=== PATIENT | female | born 1935 | race Caucasian/White ===

== ENCOUNTER → 2017-11-02 07:53 | Outpatient (CLI) | payer MEDICARE, SELFPAY ==
[2017-11-02 07:59] LABS: Bacteria 0 SEEN /hpf (None Seen); Mucous, Urine 0 SEEN /hpf (<or=2+); Red Blood Cells-Urine 0 SEEN /hpf (0-5)
[2017-11-02 09:13] LABS: Hemoglobin A1c 8.1 % (4.2-6.3)
[2017-11-02 09:29] LABS: Anion Gap 7 (5-15); BUN 25 mg/dL (7-18); BUN/Creat Ratio 22.1 RATIO (10-20); Calcium,Total 9.4 mg/dL (8.5-10.1); Chloride 100 mmol/L (98-107); Cholesterol 283 mg/dL (200); Creatinine, Serum 1.13 mg/dL (0.55-1.02); EST Glomerular Filtration Rate 49 mL/min (>60); Est Glom Filt Rate - Afr Amer 60 mL/min (>60); Glucose 188 mg/dL (74-106); High Density Lipoprotein 43 mg/dL; Potassium 4.7 mmol/L (3.5-5.1); Sodium Level 138 mmol/L (136-145); T4 Free Direct 1.36 ng/dL (0.76-1.46); Thyroid Stim Hormone (TSH) 1.78 uIU/mL (0.358-3.74); Triglycerides 418 mg/dL
[2017-11-02 10:23] LABS: Color, Urine Yellow (Yellow); Glucose, Dipstick Normal (Normal); Ketone-Dipstick Negative (Negative); Leukocyte Esterase-Dipstick 25 /ul (Negative); Nitrite-Dipstick Negative (Negative); Occult Blood-Urine Negative /ul (Negative); Protein-Dipstick 15 mg/dl (Negative); Urine Bilirubin Dipstick Negative (Negative); Urine Clarity Clear (Clear); Urine Urobilinogen Normal (Normal); Urine pH 6.5 (5.0 - 8.0)
[2017-11-02 10:39] LABS: Squamous Epithelial Cells - UA 0-5 SEEN /hpf (5-10); Transitional Epithelial - Ur 0-5 SEEN /hpf (0-5); White Blood Cells 0-5 SEEN /hpf (0-5)
== END ==
PROVIDERS: Family Provider Internal Medicine; PCP Internal Medicine; Visit Provider Internal Medicine
DX: E78.2 Mixed hyperlipidemia (principal); E03.9 Hypothyroidism, unspecified; E11.9 Type 2 diabetes mellitus without complications; I10 Essential (primary) hypertension
CPT/HCPCS: 36415; 80048; 80061; 81001; 83036; 84439; 84443

== ENCOUNTER → 2018-02-01 09:48 | Outpatient (CLI) | payer MEDICARE, SELFPAY ==
[2018-02-01 10:31] LABS: Hematocrit 37.8 % (37-47); Hemoglobin 12.3 g/dl (12.0-15.0); Mean Corp Hgb Conc 32.5 g/gl (32-36); Mean Corpuscular Hgb 30.8 pg (27.0-32.0); Mean Corpuscular Volume 94.5 fL (81-99); Mean Platelet Vol. 10.9 fl (6.2-12.0); Platelet Count 347 K/mm3 (150-450); RBC Distribution Width CV 12.3 % (11.6-14.6); RBC Distribution Width SD 41.8 fl (35.1-43.9); Scan Indicated on CBC? Y/N NO; White Blood Count 6.8 K/mm3 (4.4-11.0)
[2018-02-01 10:50] LABS: Hemoglobin A1c 7.9 % (4.2-6.3)
[2018-02-01 11:04] LABS: Microalbumin,Random Urine 56.3 mg/L (NO RANGE EST.); Microalbumin:Creatinine Ratio 84.7 mg/g CRE (<30 mg/g CRE)
[2018-02-01 11:09] LABS: ALB/GLOB Ratio 0.9 RATIO (0.9-2.4); AST(SGOT) 17 U/L (15-37); Alanine Aminotransfer ALT/SGPT 21 U/L (13-56); Albumin, Serum 3.7 g/dL (3.2-5.0); Alkaline Phosphatase 75 U/L (45-117); Anion Gap 9 (5-15); BUN 31 mg/dL (7-18); BUN/Creat Ratio 29.5 RATIO (10-20); Calcium,Total 9.4 mg/dL (8.5-10.1); Chloride 103 mmol/L (98-107); Cholesterol 301 mg/dL (200); Creatinine, Serum 1.05 mg/dL (0.55-1.02); EST Glomerular Filtration Rate 54 mL/min (>60); Est Glom Filt Rate - Afr Amer 65 mL/min (>60); Globulin 4.2 g/dL (2.2-4.2); Glucose 176 mg/dL (74-106); High Density Lipoprotein 39 mg/dL; Potassium 4.3 mmol/L (3.5-5.1); Protein, Total 7.9 g/dL (6.4-8.2); Sodium Level 138 mmol/L (136-145); Triglycerides 379 mg/dL; Very Low Density Lipoprotein 76 mg/dL (5-40)
[2018-02-02 05:07] LABS: LDL, Direct 120295 192 mg/dL (0-99)
== END ==
PROVIDERS: Family Provider Internal Medicine; PCP Internal Medicine; Visit Provider Internal Medicine
DX: E11.9 Type 2 diabetes mellitus without complications (principal); E78.2 Mixed hyperlipidemia; I10 Essential (primary) hypertension; Z79.899 Other long term (current) drug therapy
CPT/HCPCS: 36415; 80053; 80061; 82043; 82570; 83036; 83721; 85027

== ENCOUNTER → 2018-06-07 08:05 | Outpatient (CLI) | payer MEDICARE, SELFPAY ==
[2018-06-07 08:13] LABS: Bacteria 0 SEEN /hpf (None Seen); Mucous, Urine 0 SEEN /hpf (<or=2+); Red Blood Cells-Urine 0 SEEN /hpf (0-5)
[2018-06-07 08:28] LABS: Color, Urine Yellow (Yellow); Glucose, Dipstick Normal (Normal); Ketone-Dipstick Negative (Negative); Leukocyte Esterase-Dipstick 100 /ul (Negative); Nitrite-Dipstick Negative (Negative); Occult Blood-Urine Negative /ul (Negative); Protein-Dipstick 15 mg/dl (Negative); Specific Gravity, Urine 1.005 (1.002-1.030); Urine Bilirubin Dipstick Negative (Negative); Urine Clarity Sl. Cloudy (Clear); Urine Urobilinogen Normal (Normal)
[2018-06-07 08:34] LABS: Squamous Epithelial Cells - UA 0-5 SEEN /hpf (5-10); White Blood Cells 10-25 SEEN /hpf (0-5)
[2018-06-07 09:06] LABS: BUN 28 mg/dL (7-18); Creatinine, Serum 1.35 mg/dL (0.55-1.02); Glucose 189 mg/dL (74-106)
[2018-06-07 09:07] LABS: Anion Gap 5 (5-15); BUN/Creat Ratio 20.7 RATIO (10-20); Calcium,Total 9.1 mg/dL (8.5-10.1); Chloride 103 mmol/L (98-107); Cholesterol 290 mg/dL (200); EST Glomerular Filtration Rate 40 mL/min (>60); Est Glom Filt Rate - Afr Amer 48 mL/min (>60); High Density Lipoprotein 42 mg/dL; Potassium 4.7 mmol/L (3.5-5.1); Sodium Level 137 mmol/L (136-145); T4 Free Direct 1.17 ng/dL (0.76-1.46); Thyroid Stim Hormone (TSH) 2.06 uIU/mL (0.358-3.74); Triglycerides 320 mg/dL; Very Low Density Lipoprotein 64 mg/dL (5-40)
[2018-06-08 04:08] LABS: LDL, Direct 120295 205 mg/dL (0-99)
== END ==
PROVIDERS: Family Provider Internal Medicine; PCP Internal Medicine; Visit Provider Internal Medicine
DX: E11.9 Type 2 diabetes mellitus without complications (principal); E78.2 Mixed hyperlipidemia; E03.9 Hypothyroidism, unspecified; I10 Essential (primary) hypertension
CPT/HCPCS: 36415; 80048; 80061; 81001; 83036; 83721; 84439; 84443

== ENCOUNTER → 2018-12-18 11:12 | Outpatient (CLI) | payer MEDICARE, SELFPAY ==
[2018-12-18 11:52] LABS: Anion Gap 6 (5-15); BUN 24 mg/dL (7-18); BUN/Creat Ratio 23.3 RATIO (10-20); Calcium,Total 8.9 mg/dL (8.5-10.1); Chloride 108 mmol/L (98-107); Cholesterol 279 mg/dL (200); Creatinine, Serum 1.03 mg/dL (0.55-1.02); EST Glomerular Filtration Rate 55 mL/min (>60); Est Glom Filt Rate - Afr Amer 66 mL/min (>60); Glucose 169 mg/dL (74-106); High Density Lipoprotein 45 mg/dL; Potassium 4.2 mmol/L (3.5-5.1); Sodium Level 138 mmol/L (136-145); Triglycerides 253 mg/dL; Very Low Density Lipoprotein 51 mg/dL (5-40)
[2018-12-18 11:57] LABS: Hemoglobin A1c 8.3 % (4.2-6.3)
== END ==
PROVIDERS: Family Provider Internal Medicine; PCP Internal Medicine; Referring Provider Internal Medicine; Visit Provider Internal Medicine
DX: E11.9 Type 2 diabetes mellitus without complications (principal); E78.2 Mixed hyperlipidemia; I10 Essential (primary) hypertension
CPT/HCPCS: 80048; 80061; 83036

== ENCOUNTER → 2019-02-25 | Outpatient (CLI) | payer MEDICARE, SELFPAY ==
[2017-06-29 15:59] VITALS: BMI 30.4
== END | disposition home or self-care (01) ==
PROVIDERS: Family Provider Internal Medicine; PCP Internal Medicine; Referring Provider Internal Medicine; Visit Provider Internal Medicine
DX: R30.0 Dysuria (principal)
CPT/HCPCS: 87086; 87088

== ENCOUNTER → 2019-03-18 | Outpatient (CLI) | payer MEDICARE, SELFPAY ==
[2017-06-29 15:59] VITALS: BMI 30.4
[2019-03-18 11:50] LABS: Anion Gap 2 (5-15); BUN 22 mg/dL (7-18); BUN/Creat Ratio 18.8 RATIO (10-20); Calcium,Total 9.2 mg/dL (8.5-10.1); Chloride 105 mmol/L (98-107); Cholesterol 273 mg/dL (200); Creatinine, Serum 1.17 mg/dL (0.55-1.02); EST Glomerular Filtration Rate 47 mL/min (>60); Est Glom Filt Rate - Afr Amer 57 mL/min (>60); Glucose 191 mg/dL (74-106); Hemoglobin A1c 8.6 % (4.2-6.3); High Density Lipoprotein 44 mg/dL; Potassium 4.1 mmol/L (3.5-5.1); Sodium Level 136 mmol/L (136-145); Triglycerides 235 mg/dL; Very Low Density Lipoprotein 47 mg/dL (5-40)
== END | disposition home or self-care (01) ==
LOC: LABSPEC 10:50
PROVIDERS: Family Provider Internal Medicine; PCP Internal Medicine; Referring Provider Internal Medicine; Visit Provider Internal Medicine
DX: E78.2 Mixed hyperlipidemia (principal); E11.9 Type 2 diabetes mellitus without complications; I10 Essential (primary) hypertension
CPT/HCPCS: 80048; 80061; 83036

== ENCOUNTER → 2019-06-24 | Outpatient (CLI) | payer MEDICARE, SELFPAY ==
[2017-06-29 15:59] VITALS: BMI 30.4
[2019-06-24 11:06] LABS: Hematocrit 37.6 % (37-47); Mean Corp Hgb Conc 31.9 g/dL (32-36); Mean Corpuscular Hgb 29.9 pg (27.0-32.0); Mean Corpuscular Volume 93.8 fL (81-99); Mean Platelet Vol. 10.6 fl (6.2-12.0); Platelet Count 367 K/mm3 (150-450); RBC Distribution Width CV 12.6 % (11.6-14.6); RBC Distribution Width SD 43.4 fl (35.1-43.9); Red Blood Count 4.01 M/mm3 (4.2-5.4); White Blood Count 8.4 K/mm3 (4.4-11.0)
[2019-06-24 11:19] LABS: ALB/GLOB Ratio 0.8 RATIO (0.9-2.4); AST(SGOT) 13 U/L (15-37); Alanine Aminotransfer ALT/SGPT 19 U/L (13-56); Albumin, Serum 3.6 g/dL (3.2-5.0); Alkaline Phosphatase 76 U/L (45-117); Anion Gap 7 (5-15); BUN 28 mg/dL (7-18); BUN/Creat Ratio 23.5 RATIO (10-20); Calcium,Total 9.5 mg/dL (8.5-10.1); Chloride 104 mmol/L (98-107); Cholesterol 267 mg/dL (200); Creatinine, Serum 1.19 mg/dL (0.55-1.02); EST Glomerular Filtration Rate 46 mL/min (>60); Est Glom Filt Rate - Afr Amer 56 mL/min (>60); Globulin 4.5 g/dL (2.2-4.2); Glucose 176 mg/dL (74-106); High Density Lipoprotein 44 mg/dL; Potassium 4.4 mmol/L (3.5-5.1); Protein, Total 8.1 g/dL (6.4-8.2); Sodium Level 139 mmol/L (136-145); Triglycerides 298 mg/dL; Very Low Density Lipoprotein 60 mg/dL (5-40)
[2019-06-24 11:24] LABS: Hemoglobin A1c 7.9 % (4.2-6.3)
== END | disposition home or self-care (01) ==
PROVIDERS: Family Provider Internal Medicine; PCP Internal Medicine; Referring Provider Internal Medicine; Visit Provider Internal Medicine
DX: E11.9 Type 2 diabetes mellitus without complications (principal); E78.2 Mixed hyperlipidemia; I10 Essential (primary) hypertension
CPT/HCPCS: 80053; 80061; 83036; 85027

== ENCOUNTER → 2019-09-20 12:14 | Outpatient (CLI) | payer MEDICARE, SELFPAY ==
[2017-06-29 15:59] VITALS: BMI 30.4
[2019-09-20 15:13] LABS: Hematocrit 38.4 % (37-47); Hemoglobin 12.2 g/dL (12.0-15.0); Mean Corp Hgb Conc 31.8 g/dL (32-36); Mean Corpuscular Hgb 30.3 pg (27.0-32.0); Mean Corpuscular Volume 95.5 fL (81-99); Mean Platelet Vol. 11.4 fl (6.2-12.0); Platelet Count 373 K/mm3 (150-450); RBC Distribution Width CV 12.4 % (11.6-14.6); RBC Distribution Width SD 43.2 fl (35.1-43.9); Red Blood Count 4.02 M/mm3 (4.2-5.4); White Blood Count 10.5 K/mm3 (4.4-11.0)
[2019-09-20 15:33] LABS: ALB/GLOB Ratio 0.9 RATIO (0.9-2.4); AST(SGOT) 16 U/L (15-37); Alanine Aminotransfer ALT/SGPT 26 U/L (13-56); Albumin, Serum 3.8 g/dL (3.2-5.0); Alkaline Phosphatase 82 U/L (45-117); Anion Gap 5 (5-15); BUN 24 mg/dL (7-18); BUN/Creat Ratio 19.2 RATIO (10-20); Calcium,Total 9.6 mg/dL (8.5-10.1); Chloride 104 mmol/L (98-107); Cholesterol 214 mg/dL (200); Creatinine, Serum 1.25 mg/dL (0.55-1.02); EST Glomerular Filtration Rate 44 mL/min (>60); Est Glom Filt Rate - Afr Amer 53 mL/min (>60); Globulin 4.3 g/dL (2.2-4.2); Glucose 157 mg/dL (74-106); High Density Lipoprotein 44 mg/dL; Potassium 4.3 mmol/L (3.5-5.1); Protein, Total 8.1 g/dL (6.4-8.2); Sodium Level 137 mmol/L (136-145); Thyroid Stim Hormone (TSH) 0.71 uIU/mL (0.358-3.74); Triglycerides 287 mg/dL; Very Low Density Lipoprotein 57 mg/dL (5-40)
[2019-09-20 15:47] LABS: Microalbumin,Random Urine 74.5 mg/L (NO RANGE EST.); Microalbumin:Creatinine Ratio 42.6 mg/g CRE (<30 mg/g CRE)
== END ==
PROVIDERS: Family Provider Internal Medicine; PCP Internal Medicine; Referring Provider Internal Medicine; Visit Provider Internal Medicine
DX: E11.9 Type 2 diabetes mellitus without complications (principal); E03.9 Hypothyroidism, unspecified; I10 Essential (primary) hypertension; E78.2 Mixed hyperlipidemia
CPT/HCPCS: 80053; 80061; 82043; 82570; 84443; 85027

== ENCOUNTER → 2020-03-19 | Outpatient (CLI) | payer MEDICARE, SELFPAY ==
[2017-06-29 15:59] VITALS: BMI 30.4
[2020-03-19 15:55] LABS: Hemoglobin A1c 7.9 % (3.8-5.6)
[2020-03-19 16:00] LABS: Cholesterol 273 mg/dL (200); High Density Lipoprotein 48 mg/dL; T4 Free Direct 1.53 ng/dL (0.76-1.46); Thyroid Stim Hormone (TSH) 1.43 uIU/mL (0.358-3.74); Triglycerides 208 mg/dL; Very Low Density Lipoprotein 42 mg/dL (5-40)
== END | disposition home or self-care (01) ==
LOC: LABSPEC 13:54
PROVIDERS: PCP Internal Medicine; Referring Provider Internal Medicine; Visit Provider Internal Medicine
DX: E03.9 Hypothyroidism, unspecified (principal); E11.9 Type 2 diabetes mellitus without complications; E78.2 Mixed hyperlipidemia
CPT/HCPCS: 80061; 83036; 84439; 84443

== ENCOUNTER → 2020-05-31 | Outpatient (CLI) | payer MEDICARE, SELFPAY | END | disposition home or self-care (01) | LOC: LABSPEC 16:43 | PROVIDERS: PCP Internal Medicine; Referring Provider Otolaryngology Otolaryngology/Facial Plastic Surgery; Visit Provider Otolaryngology Otolaryngology/Facial Plastic Surgery | DX: J32.9 Chronic sinusitis, unspecified (principal); R09.81 Nasal congestion | CPT/HCPCS: 87070; 87077; 87186; 87205 ==

== ENCOUNTER → 2020-07-09 | Outpatient (CLI) | payer MEDICARE, SELFPAY ==
[2017-06-29 15:59] VITALS: BMI 30.4
[2020-07-09 16:28] LABS: ALB/GLOB Ratio 0.8 RATIO (0.9-2.4); AST(SGOT) 11 U/L (15-37); Alanine Aminotransfer ALT/SGPT 18 U/L (13-56); Albumin, Serum 3.7 g/dL (3.2-5.0); Alkaline Phosphatase 90 U/L (45-117); Anion Gap 7 (5-15); BUN 20 mg/dL (7-18); Calcium,Total 9.8 mg/dL (8.5-10.1); Chloride 104 mmol/L (98-107); Cholesterol 263 mg/dL (200); Creatinine, Serum 1.11 mg/dL (0.55-1.02); EST Glomerular Filtration Rate 50 mL/min (>60); Est Glom Filt Rate - Afr Amer 60 mL/min (>60); Globulin 4.8 g/dL (2.2-4.2); Glucose 185 mg/dL (74-106); High Density Lipoprotein 48 mg/dL; Potassium 4.2 mmol/L (3.5-5.1); Protein, Total 8.5 g/dL (6.4-8.2); Sodium Level 139 mmol/L (136-145); T4 Free Direct 1.46 ng/dL (0.76-1.46); Thyroid Stim Hormone (TSH) 2.83 uIU/mL (0.358-3.74); Triglycerides 216 mg/dL; Very Low Density Lipoprotein 43 mg/dL (5-40)
[2020-07-09 16:59] LABS: Hemoglobin A1c 7.8 % (3.8-5.6)
== END | disposition home or self-care (01) ==
LOC: LABSPEC 13:15
PROVIDERS: PCP Internal Medicine; Referring Provider Internal Medicine; Visit Provider Internal Medicine
DX: E03.9 Hypothyroidism, unspecified (principal); E78.2 Mixed hyperlipidemia; E11.9 Type 2 diabetes mellitus without complications; I10 Essential (primary) hypertension
CPT/HCPCS: 80053; 80061; 83036; 84439; 84443

== ENCOUNTER → 2020-10-05 | Outpatient (CLI) | payer MEDICARE, SELFPAY ==
[2017-06-29 15:59] VITALS: BMI 30.4
[2020-10-05 13:24] LABS: Microalbumin,Random Urine 98.1 mg/L (NO RANGE EST.); Microalbumin:Creatinine Ratio 64.5 mg/g CRE (<30 mg/g CRE)
[2020-10-05 16:54] LABS: Hemoglobin A1c 7.9 % (3.8-5.6)
== END | disposition home or self-care (01) ==
LOC: LABSPEC 12:20
PROVIDERS: PCP Internal Medicine; Referring Provider Internal Medicine; Visit Provider Internal Medicine
DX: E11.9 Type 2 diabetes mellitus without complications (principal)
CPT/HCPCS: 82043; 82570; 83036

== ENCOUNTER → 2021-01-03 | Outpatient (CLI) | payer MEDICARE, SELFPAY ==
[2017-06-29 15:59] VITALS: BMI 30.4
[2021-01-03 13:45] LABS: Hemoglobin A1c 7.8 % (3.8-5.6)
[2021-01-03 13:46] LABS: Cholesterol 286 mg/dL (200); High Density Lipoprotein 47 mg/dL; T4 Free Direct 1.24 ng/dL (0.76-1.46); Thyroid Stim Hormone (TSH) 3.36 uIU/mL (0.358-3.74); Triglycerides 385 mg/dL; Very Low Density Lipoprotein 77 mg/dL (5-40)
== END | disposition home or self-care (01) ==
LOC: LABSPEC 12:29
PROVIDERS: PCP Internal Medicine; Referring Provider Clinical Nurse Specialist; Visit Provider Clinical Nurse Specialist
DX: E78.2 Mixed hyperlipidemia (principal); E03.9 Hypothyroidism, unspecified; E11.9 Type 2 diabetes mellitus without complications
CPT/HCPCS: 80061; 83036; 84439; 84443

== ENCOUNTER → 2021-04-23 | Outpatient (CLI) | payer MEDICARE, SELFPAY ==
[2017-06-29 15:59] VITALS: BMI 30.4
[2021-04-23 13:02] LABS: Hemoglobin A1c 7.5 % (3.8-5.6)
[2021-04-23 13:05] LABS: Cholesterol 285 mg/dL (200); High Density Lipoprotein 43 mg/dL; Thyroid Stim Hormone (TSH) 3.47 uIU/mL (0.358-3.74); Triglycerides 504 mg/dL
== END | disposition home or self-care (01) ==
LOC: LABSPEC 12:21
PROVIDERS: PCP Internal Medicine; Referring Provider Clinical Nurse Specialist; Visit Provider Clinical Nurse Specialist
DX: E11.9 Type 2 diabetes mellitus without complications (principal); E03.9 Hypothyroidism, unspecified
CPT/HCPCS: 80061; 83036; 84443

== ENCOUNTER 2021-07-10 17:08 | Emergency (ER) | payer MEDICARE, SELFPAY ==
[2021-07-10 17:08] VITALS: BP 195/95; PULSE 63; RESP 18; TEMP 36.8; O2SAT 97; BMI 29.2
--- NOTE | 2021-07-10 17:27 | EX.ED.UPPERE ---
HPI History of Present Illness Chief Complaint: Upper Extremity Injury Informant: patient Narrative Narrative: 86-year-old female states that she was on her way to the mailbox when she slipped and fell and reached for the car door. Her body went down to the ground but her arms were up in the door. She is worried that she may have dislocated her right shoulder. She denies any other injuries. She notes some discomfort of the right elbow but states her hand and wrist feel fine [facility] Medical History (Updated 07/10/21 @ 19:[address] Graham Laureano, ) Diabetes mellitus type 2 in nonobese GERD (gastroesophageal reflux disease) Hypertension Hypothyroidism Home Medications alpha lipoic acid 400 mg PO BID 06/29/17 [History Last Taken 06/29/17] alprazolam 0.5 mg PO QHS 06/29/17 [History Last Taken 06/28/17] amlodipine 10 mg PO DAILY 06/29/17 [History Last Taken 06/29/17] aspirin 81 mg PO DAILY 06/29/17 [History Last Taken 06/28/17] esomeprazole magnesium 20 mg PO DAILY 06/29/17 [History Last Taken 06/29/17] fish,bora,flax oils-om3,6,9no1 [[place] 3-6-9 Complex] 400 mg PO BID 06/29/17 [History Last Taken 06/29/17] glimepiride 2 mg PO BID 06/29/17 [History Last Taken 06/29/17] levothyroxine [Synthroid] 88 mcg PO DAILY 06/29/17 [History Last Taken 06/29/17] lisinopril 20 mg PO DAILY 06/29/17 [History Last Taken 06/29/17] magnesium 250 mg PO BID 06/29/17 [History Last Taken 06/29/17] metformin 500 mg PO BID 06/29/17 [History Last Taken 06/29/17] multivitamin [Daily Multiple] 1 ea PO DAILY 06/29/17 [History Last Taken 06/28/17] niacin 500 mg PO QHS 06/29/17 [History Last Taken 06/28/17] propranolol 160 mg PO DAILY 06/29/17 [History Last Taken 06/28/17] vit C,H-Px-cguaw-lutein-zeaxan [PreserVision AREDS-2] 1 ea PO BID 06/29/17 [History Last Taken 06/29/17] vitamin E 400 unit PO DAILY 06/29/17 [History Last Taken 06/29/17] Allergy/AdvReac Type Severity Reaction Status Date / Time lidocaine Allergy Anaphylaxis Verified 07/10/21 17:10 Penicillins [PCN] Allergy Hives Verified 07/10/21 17:10 pentazocine [From Talwin] Allergy Anaphylaxis Verified 07/10/21 17:10 acetaminophen [From Percocet] AdvReac Upset Verified 07/10/21 17:10 Stomach aspirin [From Equagesic] AdvReac Upset Verified 07/10/21 17:10 Stomach atorvastatin [From Lipitor] AdvReac Pain in Verified 07/10/21 17:10 joints codeine AdvReac Upset Verified 07/10/21 17:10 Stomach doxycycline [From Vibramycin] AdvReac Upset Verified 07/10/21 17:10 Stomach erythromycin base AdvReac Upset Verified 07/10/21 17:10 Stomach hydromorphone AdvReac Upset Verified 07/10/21 17:10 Stomach hydroxyzine [From Vistaril] AdvReac Other Verified 07/10/21 17:10 meprobamate [From Equagesic] AdvReac Upset Verified 07/10/21 17:10 Stomach Morpholine Analogues AdvReac Other Verified 07/10/21 17:10 oxycodone [From Percocet] AdvReac Upset Verified 07/10/21 17:10 Stomach MYCINS AdvReac Upset Uncoded 07/10/21 17:10 Stomach Social History (Updated 07/10/21 @ 17:[address] Graham Laureano, DO) current gender identity: female Smoking Status: Never smoker substance use type: does not use ROS ROS ED Constitutional Constitutional ED: Denies chills, fever(s) or weight loss Eyes Eyes: Denies change in vision or diplopia ENT ENT ED: Denies ear pain, rhinorrhea or sore throat Cardiovascular Cardiovascular: Denies chest pain, orthopnea, palpitations or racing heartbeat Respiratory/Chest Respiratory/Chest: Denies cough, dyspnea or orthopnea Gastrointestinal Gastrointestinal: Denies abdominal pain, diarrhea, nausea or vomiting Genitourinary Genitourinary ED: Denies dysuria, hematuria or urinary frequency Musculoskeletal Musculoskeletal: Reports other Details: Right shoulder pain ; Denies arthralgias, back pain, myalgias or neck pain Integumentary Denies abscess or rash Neurologic Neurologic: Denies headache(s) or weakness Psychiatric Psychiatric: Denies anxiety, depression, suicidal ideation or suicidal thoughts Endocrine Endocrinology: Denies polydipsia, polyphagia or polyuria Allergic/Immunologic Allergic/Immunologic ED: Denies mouth swelling, tongue swelling or urticaria EXAM Physical Exam Const Vital Signs: 07/10/21 17:08 Temperature 98.3 F Temperature Source Temporal Pulse Rate 63 Respiratory Rate 18 Blood Pressure 195/95 H Blood Pressure Mean 128 Pulse Ox 97 Oxygen Delivery Method Room Air Positive well nourished and well developed General Appearance ED: well developed HEENT Reports normocephalic, head/scalp atraumatic and moist mucous membranes normocephalic and atraumatic Eyes PERRL and EOMs intact bilaterally Neck full ROM, no lymphadenopathy, supple and no JVD General: Negative for tenderness Resp normal respiratory effort and clear to auscultation bilaterally Cardio regular rate, regular rhythm and no murmurs GI normal to inspection, nondistended, normoactive bowel sounds and non-tender Auscultation: normoactive bowel sounds Palpation: soft Back/Spine no CVA tenderness and normal ROM Lumbar Spine / Lower Back: Negative for lumbar spinal tenderness Extremity Extremity Narrative: Limited range of motion at the right shoulder with swelling noted. Tender to palpation at the AC joint with apparent asymmetry from the left. Slight soreness with range of motion and palpation of the elbow. Neurovascularly intact distal. Wrist and hand appear uninjured. General Extremety ED: Negative for edema General Extremity: Negative for edema Neuro oriented x3 and CN's II-XII intact bilaterally Sensorium / Orientation: alert Motor Exam: strength 5/5 throughout Psych mental status grossly normal Mood & Affect: Negative for depressed or tearful Skin no rashes or lesions noted and no wounds MDM MDM MDM Narrative Medical decision making narrative: My interpretation of the plain films of the right shoulder and right elbow is no acute fracture or dislocation. Patient has degenerative changes of appears to maybe have chronic rotator cuff injury and calcific tendinitis. Patient received a dose of Toradol. Patient will be discharged home with supportive care and a sling. Patient has an orthopedist in [place] or she can see orthopedics here. Discharge Plan Triage Chief Complaint: Upper Extremity Injury ED Provider: Graham Laureano Dx/Rx/DC Orders Clinical Impression: Sprain of right shoulder, Elbow pain, right, Acromioclavicular (joint) (ligament) sprain Instructions: ED Sprain AC Joint, ED Shoulder Sprain Prescriptions: No Action metformin 500 MG tablet 500 mg PO BID RF: 0 propranolol 160 MG Cap.Sa.24h 160 mg PO DAILY RF: 0 lisinopril 20 MG tablet 20 mg PO DAILY RF: 0 levothyroxine [Synthroid] 88 MCG tablet 88 mcg PO DAILY RF: 0 alprazolam 0.5 MG tablet 0.5 mg PO QHS RF: 0 amlodipine 10 MG tablet 10 mg PO DAILY RF: 0 glimepiride 4 MG tablet 2 mg PO BID RF: 0 multivitamin [Daily Multiple] 1 EACH tablet 1 ea PO DAILY RF: 0 aspirin 81 MG Tablet.Dr 81 mg PO DAILY RF: 0 niacin 500 MG tablet 500 mg PO QHS RF: 0 magnesium 250 MG tablet 250 mg PO BID RF: 0 vitamin E 400 UNIT capsule 400 unit PO DAILY RF: 0 esomeprazole magnesium 20 MG Capsule.Dr 20 mg PO DAILY RF: 0 fish,bora,flax oils-om3,6,9no1 [[place] 3-6-9 Complex] 400 MG capsule 400 mg PO BID RF: 0 alpha lipoic acid 200 MG capsule 400 mg PO BID RF: 0 vit C,V-Ri-vhfex-lutein-zeaxan [PreserVision AREDS-2] 1 EACH capsule 1 ea PO BID RF: 0 Primary Care Provider: Kelly Puentes Referrals: Kelly Puentes MD [Primary Care Provider] - As Needed Jeromy George DO [STAFF PHYSICIAN] - 1-2 Weeks Activity Restrictions/Additional Instructions: Please follow-up with your orthopedist in [place] for one of the local orthopedist here see the referral above Disposition Disposition: Home, Self Care
--- NOTE | 2021-07-10 17:33 | RAD_ITS ---
HISTORY: Trauma, injury COMPARISON: None FINDINGS: # of images incl. paperwork: 3 XR Elbow Min 3 Views: 3 views SOFT TISSUES: There is no displacement of the anterior or posterior fat pads. No radiopaque foreign body. BONES: No acute fracture or subluxation. JOINTS: Preservation of the joint spaces. RAD/Elbow min 3 Views IMPRESSION: No acute bony injury. at 1859 Reported and signed by: Wicho Jennings MD Electronically Signed: Wicho Jennings MD at 18:57 EDT Tel , Service support ,
--- NOTE | 2021-07-10 17:33 | RAD_ITS ---
STUDY: X-RAY - RIGHT SHOULDER REASON FOR EXAM: Female, 86 years old. Fall. Pain. Unable to move arm. TECHNIQUE: 2 view(s) of the shoulder. COMPARISON: None. FINDINGS: There is mild degenerative arthrosis of the glenohumeral articulation. There is degenerative arthrosis of the acromioclavicular joint without inferior osseous spur formation. Normal acromion. There is no acute fracture, dislocation or destructive osseous pathology. There is demineralization of the humerus and visualized osseous structures. The soft tissue structures are unremarkable. Normal visualized pulmonary apex. RAD/Shoulder min 2 Views IMPRESSION: Osteopenia and degenerative changes of right shoulder. There is no acute fracture or dislocation. Electronically Signed: Eris Gonzalez DO at 19:15 EDT Tel [phone], Service support ,
[2021-07-10] MEDS: Ketorolac 30 MG/ML Syringe IV (19:40)
== END 2021-07-10 19:50 | disposition home or self-care (01) ==
PROVIDERS: Emergency Provider Emergency Medicine; PCP Internal Medicine
DX: S43.401A Unspecified sprain of right shoulder joint, initial encounter (principal); S53.401A Unspecified sprain of right elbow, initial encounter; E11.9 Type 2 diabetes mellitus without complications; K21.9 Gastro-esophageal reflux disease without esophagitis; I10 Essential (primary) hypertension; E03.9 Hypothyroidism, unspecified; Z79.84 Long term (current) use of oral hypoglycemic drugs; Z79.899 Other long term (current) drug therapy; W01.0XXA Fall on same level from slipping, tripping and stumbling without subsequent striking against object, initial encounter; Y93.01 Activity, walking, marching and hiking; Y92.008 Other place in unspecified non-institutional (private) residence as the place of occurrence of the external cause; Y99.8 Other external cause status
CPT/HCPCS: 73030; 73080; 96374; 99283; A4216

== ENCOUNTER 2022-06-09 15:53 | Emergency (ER) | payer MEDICARE, SELFPAY ==
[2022-06-09 15:54] VITALS: BP 118/65; RESP 17; TEMP 36.5; O2SAT 99; BMI 24.8
--- NOTE | 2022-06-09 16:20 | EDS_ITS ---
HPI History of Present Illness Chief Complaint: General Illness Narrative Narrative: Patient presents with her daughter because of possible dehydration. She states that she is felt weak and mildly confused for the last 2 weeks. She denies any fevers or chills. No cough. No nausea or vomiting. No diarrhea. However, when the patient had shoulder surgery and was hospitalized she had a low sodium and was acting the same way. That had corrected after she had been drinking protein shakes, but she has cut back on those. She called her primary care physician's office today who told her to come to the emergency department for evaluation for dehydration and hyponatremia because of the same symptoms. Of note, patient is a retired RN. [facility] Medical History Diabetes mellitus type 2 in nonobese GERD (gastroesophageal reflux disease) Hypertension Hypothyroidism Home Medications alpha lipoic acid 200 mg capsule 400 mg PO BID 06/29/17 [History Last Taken 06/29/17] alprazolam 0.5 mg tablet 0.5 mg PO QHS SLEEP 06/29/17 [History Last Taken 06/28/17] amlodipine 10 mg tablet 10 mg PO DAILY BLOOD PRESURE 06/29/17 [History Last Taken 06/29/17] aspirin 81 mg tablet,delayed release 81 mg PO DAILY HEART HEALTH 06/29/17 [History Last Taken 06/28/17] esomeprazole magnesium 20 mg capsule,delayed release 20 mg PO DAILY ACID REFLUX 06/29/17 [History Last Taken 06/29/17] fish, borage, flaxseed oils-omega 3,6,9 cb #1 400 mg-400 mg-400 mg cap ([place] 3-6-9 Complex) 400 mg PO BID SUPPLEMENT 06/29/17 [History Last Taken 06/29/17] glimepiride 4 mg tablet 2 mg PO BID BLOOD SUGAR 06/29/17 [History Last Taken 06/29/17] levothyroxine 88 mcg tablet (Synthroid) 88 mcg PO DAILY THYROID 06/29/17 [History Last Taken 06/29/17] lisinopril 20 mg tablet 20 mg PO DAILY BLOOD PRESSURE 06/29/17 [History Last Taken 06/29/17] magnesium 250 mg tablet 250 mg PO BID SUPPLEMENT 06/29/17 [History Last Taken 06/29/17] metformin 500 mg tablet 500 mg PO BID BLOOD SUGAR 06/29/17 [History Last Taken 06/29/17] multivitamin (Daily Multiple tablet) 1 ea PO DAILY SUPPLEMENT 06/29/17 [History Last Taken 06/28/17] niacin 500 mg tablet 500 mg PO QHS SUPPLEMENT 06/29/17 [History Last Taken 06/28/17] propranolol 160 mg capsule,24 hr,extended release 160 mg PO DAILY BLOOD PRESSURE 06/29/17 [History Last Taken 06/28/17] vit C 250 mg-vit E 90 mg-zinc 40 mg-copper 1 [id number] capsule (PreserVision AREDS-2) 1 ea PO BID EYE HEALTH 06/29/17 [History Last Taken 06/29/17] vitamin E 268 mg (400 unit) capsule 400 unit PO DAILY SUPPLEMENT 06/29/17 [History Last Taken 06/29/17] Allergy/AdvReac Type Severity Reaction Status Date / Time cephalexin [From Keflex] Allergy Rash Verified 06/09/22 15:59 lidocaine Allergy Anaphylaxis Verified 06/09/22 15:57 Penicillins [PCN] Allergy Hives Verified 06/09/22 15:57 pentazocine [From Talwin] Allergy Anaphylaxis Verified 06/09/22 15:57 acetaminophen [From Percocet] AdvReac Upset Verified 06/09/22 15:57 Stomach aspirin [From Equagesic] AdvReac Upset Verified 06/09/22 15:57 Stomach atorvastatin [From Lipitor] AdvReac Pain in Verified 06/09/22 15:57 joints codeine AdvReac Upset Verified 06/09/22 15:57 Stomach doxycycline [From Vibramycin] AdvReac Upset Verified 06/09/22 15:57 Stomach erythromycin base AdvReac Upset Verified 06/09/22 15:57 Stomach hydromorphone AdvReac Upset Verified 06/09/22 15:57 Stomach hydroxyzine [From Vistaril] AdvReac Other Verified 06/09/22 15:57 meprobamate [From Equagesic] AdvReac Upset Verified 06/09/22 15:57 Stomach Morpholine Analogues AdvReac Other Verified 06/09/22 15:57 oxycodone [From Percocet] AdvReac Upset Verified 06/09/22 15:57 Stomach MYCINS AdvReac Upset Uncoded 06/09/22 15:57 Stomach Social History Smoking Status: Never smoker substance use type: does not use ROS ROS ED ROS Narrative Constitutional: No fever, no chills. HEENT: No sore throat. No neck pain. No loss of vision. No rhinorrhea. Cardiovascular: No chest pain. No palpitations. No pedal edema. Respiratory: No cough, no shortness of breath. Abdominal: No abdominal pain. No nausea. No vomiting. Genitourinary: No dysuria. No hematuria. Musculoskeletal: No myalgias. No arthralgias. Neurologic: No headaches. No dizziness. No lightheadedness. Generalized weakness, mild confusion. Skin: No rash. No change in color. Psychiatric: No depression. No anxiety. EXAM Physical Exam Narrative Exam Narrative: Afebrile. Vital signs noted. HEENT: Normocephalic. Atraumatic. PERRL, EOMI. Neck soft and supple. No point tenderness or step off. Cardiovascular: Regular rate and rhythm. No murmurs, rubs, or gallops appreciated. Respiratory: No tachypnea. Lungs clear to auscultation bilaterally. Gastrointestinal: Abdomen soft, nontender, with normoactive bowel sounds. No rebound or guarding. Neurological: Awake. Alert. Nonfocal, nonlateralizing. Skin: No rash. Normal color. No pallor. Musculoskeletal: No pedal edema. Full range of motion extremities. Const Vital Signs: 06/09/22 15:54 06/09/22 18:56 06/09/22 19:00 Temperature 97.7 F L Temperature Source Temporal Pulse Rate 72 Respiratory Rate 17 18 Respiratory Effort Normal Respiratory Pattern Normal Blood Pressure 118/65 130/61 H Blood Pressure Mean 82 84 Pulse Ox 99 96 Oxygen Delivery Method Room Air Room Air MDM MDM MDM Narrative Medical decision making narrative: Patient was bolused normal saline 1 L intravenously. I will check a CBC, CMP, and magnesium, along with urinalysis. I do not feel chest x-ray is indicated. CBC is grossly normal with a normal white count of 7.7, hemoglobin normal at 12.1, normal platelet count of 330. Electrolyte panel shows sodium slightly low at 134, chloride normal at 98. Creatinine 1.41 but she has a baseline chronic kidney injury. BUN is elevated at 30. She may have mild dehydration. She was bolused normal saline 1 L intravenously. LFTs are grossly unremarkable. Urinalysis shows 0 WBCs and negative ketones, negative nitrites. I do not feel antibiotics are indicated. At this point in time, I feel she be discharged safely home with follow-up. She states she will drink her protein shakes and drink plenty of oral fluids. She will follow-up with her primary care jacob sanchez. Return instructions to the emergency department were reviewed. Disposition is discharged home in stable condition. Lab Data Attestation: I reviewed the patient's lab results. Labs: Laboratory Results - last 24 hr 06/09/22 06/09/22 06/09/22 17:05 17:05 19:50 WBC 7.7 RBC 4.04 L Hgb 12.1 Hct 36.2 L MCV 89.6 MCH 30.0 MCHC 33.4 RDW Std Deviation 43.7 RDW Coeff of Ken 13.2 Plt Count 330 MPV 9.7 Immature Gran % (Auto) 0.300 Neut % (Auto) 56.6 Lymph % (Auto) 34.3 [place] % (Auto) 8.1 Eos % (Auto) 0.4 Baso % (Auto) 0.3 Absolute Neuts (auto) 4.3 Absolute Lymphs (auto) 2.63 Nucleated RBC % 0 Sodium 134 L Potassium 4.3 Chloride 98 Carbon Dioxide 26.0 Anion Gap 10 BUN 30 H Creatinine 1.41 H Estim Creat Clear Calc 25.69 Est GFR (MDRD) Af Amer 46 L Est GFR (MDRD) Non-Af 38 L BUN/Creatinine Ratio 21.3 H Glucose 168 H Calcium 9.7 Magnesium 1.7 Total Bilirubin 0.30 AST 19 ALT 24 Alkaline Phosphatase 74 Total Protein 8.2 Albumin 3.9 Globulin 4.3 H Albumin/Globulin Ratio 0.9 Urine Color Yellow Urine Clarity Clear Urine pH 6.0 Ur Specific [place] 1.010 Urine Protein 30 H Urine Glucose (UA) Normal Urine Ketones Negative Urine Occult Blood Negative Urine Nitrite Negative Urine Bilirubin Negative Urine Urobilinogen Normal Ur Leukocyte Esterase 25 H Urine RBC 0 SEEN Urine WBC 0 SEEN Ur Squamous Epith Cells 0-5 SEEN Urine Bacteria RARE Urine Mucus 0 SEEN Discharge Plan Triage Chief Complaint: General Illness ED Provider: Ricky Ndiaye Dx/Rx/DC Orders Clinical Impression: Weakness, Hyponatremia Instructions: ED Hyponatremia, ED Weakness (Uncertain Cause) Prescriptions: No Action metformin 500 MG tablet 500 mg PO BID Label Comments: DIABETES propranolol 160 MG Cap.Sa.24h 160 mg PO DAILY Label Comments: BLOOD PRESSURE/HEART lisinopril 20 MG tablet 20 mg PO DAILY Label Comments: BLOOD PRESSURE/HEART levothyroxine [Synthroid] 88 MCG tablet 88 mcg PO DAILY Label Comments: THYROID alprazolam 0.5 MG tablet 0.5 mg PO QHS Label Comments: ANXIETY amlodipine 10 MG tablet 10 mg PO DAILY Label Comments: BLOOD PRESSURE/HEART glimepiride 4 MG tablet 2 mg PO BID Label Comments: DIABETES multivitamin [Daily Multiple] 1 EACH tablet 1 ea PO DAILY Label Comments: SUPPLEMENT aspirin 81 MG Tablet.Dr 81 mg PO DAILY Label Comments: HEART HEALTH niacin 500 MG tablet 500 mg PO QHS Label Comments: SUPPLEMENT magnesium 250 MG tablet 250 mg PO BID Label Comments: SUPPLEMENT vitamin E 400 UNIT capsule 400 unit PO DAILY Label Comments: SUPPLEMENT esomeprazole magnesium 20 MG Capsule.Dr 20 mg PO DAILY Label Comments: ACID REFLUX fish,bora,flax oils-om3,6,9no1 [[place] 3-6-9 Complex] 400 MG capsule 400 mg PO BID Label Comments: SUPPLEMENT alpha lipoic acid 200 MG capsule 400 mg PO BID Label Comments: SUPPLEMENT vit C,N-St-lpubn-lutein-zeaxan [PreserVision AREDS-2] 1 EACH capsule 1 ea PO BID Label Comments: SUPPLEMENT Primary Care Provider: Kelly Puentes Referrals: Kelly Puentes MD [Primary Care Provider] - 3-5 Days if not improving Disposition Disposition: Home, Self Care Discharge Date/Time: 06/09/22 21:13
[2022-06-09 17:13] LABS: Absolute Lymphocyte Count 2.63 X10^3/uL (0.83-4.51); Absolute Neutrophil Count 4.3 X10^3/uL (2.0-7.7); Basophil# 0.02 X10^3/uL; Basophil% 0.3 % (0-1); Eosinophil# 0.03 X10^3/uL; Eosinophils% 0.4 % (0-5); Hematocrit 36.2 % (37-47); Hemoglobin 12.1 g/dL (12.0-15.0); Lymphocyte # 2.63 X10^3/ul (0.83-4.51); Lymphocyte % 34.3 % (19-41); Mean Corp Hgb Conc 33.4 g/dL (32-36); Mean Corpuscular Volume 89.6 fL (81-99); Mean Platelet Vol. 9.7 fl (6.2-12.0); Monocyte# 0.62 X10^3/uL; Monocyte% 8.1 % (0-10); NRBC Flagged by Analyzer 0 % (0-5); Neutrophil # 4.34 X10^3/uL (2.7-7.7); Neutrophil % 56.6 % (47-70); Platelet Count 330 K/mm3 (150-450); RBC Distribution Width CV 13.2 % (11.6-14.6); RBC Distribution Width SD 43.7 fl (35.1-43.9); Red Blood Count 4.04 M/mm3 (4.2-5.4); White Blood Count 7.7 K/mm3 (4.4-11.0)
[2022-06-09 17:30] LABS: ALB/GLOB Ratio 0.9 RATIO (0.9-2.4); AST(SGOT) 19 U/L (15-37); Alanine Aminotransfer ALT/SGPT 24 U/L (13-56); Albumin, Serum 3.9 g/dL (3.2-5.0); Alkaline Phosphatase 74 U/L (45-117); Anion Gap 10 (5-15); BUN 30 mg/dL (7-18); BUN/Creat Ratio 21.3 RATIO (10-20); Calcium,Total 9.7 mg/dL (8.5-10.1); Chloride 98 mmol/L (98-107); Creatinine, Serum 1.41 mg/dL (0.55-1.02); EST Glomerular Filtration Rate 38 mL/min (>60); Est Glom Filt Rate - Afr Amer 46 mL/min (>60); Estimated Creatinine Clearance 25.69 ml/min; Globulin 4.3 g/dL (2.2-4.2); Glucose 168 mg/dL (74-106); Magnesium 1.7 mg/dL (1.6-2.6); Potassium 4.3 mmol/L (3.5-5.1); Protein, Total 8.2 g/dL (6.4-8.2); Sodium Level 134 mmol/L (136-145)
[2022-06-09] MEDS: 0.9% Normal Saline 1,000 ML 999 ML IV (18:24)
[2022-06-09 19:00] VITALS: BP 130/61; PULSE 72; RESP 18; O2SAT 96
[2022-06-09 19:53] LABS: Mucous, Urine 0 SEEN /hpf (<or=2+); Red Blood Cells-Urine 0 SEEN /hpf (0-5); White Blood Cells 0 SEEN /hpf (0-5)
[2022-06-09] MEDS: Acetaminophen 500 MG Tablet 1000 MG PO (19:55)
[2022-06-09 20:09] LABS: Color, Urine Yellow (Yellow); Glucose, Dipstick Normal (Normal); Ketone-Dipstick Negative (Negative); Leukocyte Esterase-Dipstick 25 /ul (Negative); Nitrite-Dipstick Negative (Negative); Occult Blood-Urine Negative /ul (Negative); Protein-Dipstick 30 mg/dl (Negative); Urine Bilirubin Dipstick Negative (Negative); Urine Clarity Clear (Clear); Urine Urobilinogen Normal (Normal)
[2022-06-09 20:19] LABS: Bacteria RARE /hpf (None Seen); Squamous Epithelial Cells - UA 0-5 SEEN /hpf (5-10)
== END 2022-06-09 21:13 | disposition home or self-care (01) ==
PROVIDERS: Emergency Provider Emergency Medicine; PCP Internal Medicine; Visit Provider Emergency Medicine
DX: E87.1 Hypo-osmolality and hyponatremia (principal); E11.9 Type 2 diabetes mellitus without complications; I10 Essential (primary) hypertension; R53.1 Weakness; Z79.82 Long term (current) use of aspirin; Z79.84 Long term (current) use of oral hypoglycemic drugs; Z79.899 Other long term (current) drug therapy
CPT/HCPCS: 80053; 81001; 83735; 85025; 96360; 96361; 99283; J7030; A4216